=== PATIENT | female | born 1990 | race Caucasian/White ===

== ENCOUNTER 2016-08-01 15:07 | Emergency (ER) | payer MEDICAID ==
--- NOTE | 2016-08-01 15:23 | ER Document Report ---
ED Medical Screen (RME) - General Stated Complaint: KNEE PAIN Time seen by provider: 15:21 Mode of Arrival: Wheelchair Information source: Patient TRAVEL OUTSIDE OF THE [place] IN LAST 30 DAYS: No - HPI Patient complains to provider of: RIGHT KNEE PAIN Onset: Other - LAST NIGHT Onset/Duration: Sudden Context: PREVIOUS KNEE INJURY. ON KNEES LAST NIGHT SCRUBBING FLOOR NOW KNEE HAS PAIN AND SWELLING. HAS APPT TOMORROW WITH PCP FOR EVALUATION OF ONGOING KNE PAIN. STATES UNABLE TO BEAR WEIGHT. Quality of pain: Throbbing Severity: Severe Pain Level: 5 Associated Symptoms: None Exacerbated by: Movement Relieved by: Denies Similar symptoms previously: Yes Recently seen / treated by doctor: No - Related Data Smoking: Cigarettes Frequency of alcohol use: Occasional Drug Abuse: None Pertinent History: ANXIETY ADHD Allergies/Adverse Reactions: No Known Allergies Allergy (Verified 08/01/16 15:20) Past Medical History - Past Medical History Cardiac Medical History: Denies: Hx Coronary Artery Disease, Hx Heart Attack, Hx Hypertension Pulmonary Medical History: Denies: Hx Asthma, Hx Bronchitis, Hx COPD, Hx Pneumonia Neurological Medical History: Denies: Hx Cerebrovascular Accident, Hx Seizures Musculoskeltal Medical History: Denies Hx Arthritis Past Surgical History: Reports: Hx Tonsillectomy, Hx Tubal Ligation - Immunizations Hx Diphtheria, Pertussis, Tetanus Vaccination: Yes Physical Exam - Vital signs Vitals: Temp Pulse Resp BP Pulse Ox 98.0 F 95 16 113/68 98 08/01/16 15:11 08/01/16 15:11 08/01/16 15:11 08/01/16 15:11 08/01/16 15:11 Course - Vital Signs Vital signs: Temp Pulse Resp BP Pulse Ox 98.0 F 95 16 113/68 98 08/01/16 15:11 08/01/16 15:11 08/01/16 15:11 08/01/16 15:11 08/01/16 15:11
[2016-08-01] MEDS ORDERED: OXYCODONE-ACETAMINOPHEN 5-325 MG TABLET PO ONE (15:27)
[2016-08-01] MEDS ORDERED: ONDANSETRON 4 MG TAB.RAPDIS PO ONE (15:28)
--- NOTE | 2016-08-01 18:05 | ER Document Report ---
ED Extremity Problem, Lower - General Chief Complaint: Knee Pain Stated Complaint: KNEE PAIN Mode of Arrival: Ambulatory Information source: Patient Notes: This a 25-year-old female presented to the emergency room today because she stated she had fallen from had some pain in her right knee as a result of the fall. This occurred yesterday. She is been trying elevated and ice it with little improvement. TRAVEL OUTSIDE OF THE [place] IN LAST 30 DAYS: No - Related Data Allergies/Adverse Reactions: No Known Allergies Allergy (Verified 08/01/16 15:20) Past Medical History - General Information source: Patient - Social History Smoking Status: Current Every Day Smoker Chew tobacco use (# tins/day): Yes Frequency of alcohol use: Occasional Drug Abuse: None Family History: Reviewed & Not Pertinent, Other - [place]'s disease Patient has suicidal ideation: No Patient has homicidal ideation: No - Past Medical History Cardiac Medical History: Denies: Hx Coronary Artery Disease, Hx Heart Attack, Hx Hypertension Pulmonary Medical History: Denies: Hx Asthma, Hx Bronchitis, Hx COPD, Hx Pneumonia Neurological Medical History: Denies: Hx Cerebrovascular Accident, Hx Seizures Renal/ Medical History: Denies: Hx Peritoneal Dialysis Musculoskeltal Medical History: Denies Hx Arthritis Past Surgical History: Reports: Hx Tonsillectomy, Hx Tubal Ligation - Immunizations Hx Diphtheria, Pertussis, Tetanus Vaccination: Yes Review of Systems - Review of Systems Constitutional: No symptoms reported EENT: No symptoms reported Cardiovascular: No symptoms reported Respiratory: No symptoms reported Gastrointestinal: No symptoms reported Genitourinary: No symptoms reported Female Genitourinary: No symptoms reported Musculoskeletal: Other - Right knee tenderness Skin: No symptoms reported Hematologic/Lymphatic: No symptoms reported Neurological/Psychological: No symptoms reported Physical Exam - Vital signs Vitals: Temp Pulse Resp BP Pulse Ox 98.0 F 95 16 113/68 98 08/01/16 15:11 08/01/16 15:11 08/01/16 15:11 08/01/16 15:11 08/01/16 15:11 Interpretation: Normal - General General appearance: Appears well, Alert - HEENT Head: Normocephalic, Atraumatic Eyes: Normal Pupils: PERRL - Respiratory Respiratory status: No respiratory distress Chest status: Nontender Breath sounds: Normal Chest palpation: Normal - Cardiovascular Rhythm: Regular Heart sounds: Normal auscultation Murmur: No - Abdominal Inspection: Normal Distension: No distension Bowel sounds: Normal Tenderness: Nontender Organomegaly: No organomegaly - Back Back: Normal, Nontender - Extremities General upper extremity: Normal inspection, Nontender, Normal color, Normal ROM , Normal temperature General lower extremity: Normal inspection, Nontender, Normal color, Normal ROM , Normal temperature, Normal weight bearing. No: James's sign Knee: Other - Right knee tenderness good distal pulses x-ray negative. - Neurological Neuro grossly intact: Yes Cognition: Normal Orientation: AAOx4 Ezequiel Coma Scale Eye Opening: Spontaneous Ezequiel Coma Scale Verbal: Oriented Ezequiel Coma Scale Motor: Obeys Commands Ezequiel Coma Scale Total: 15 Speech: Normal Motor strength normal: LUE, RUE, LLE, RLE Sensory: Normal - Psychological Associated symptoms: Normal affect, Normal mood - Skin Skin Temperature: Warm Skin Moisture: Dry Skin Color: Normal Course - Vital Signs Vital signs: Temp Pulse Resp BP Pulse Ox 98.0 F 95 16 113/68 98 08/01/16 15:11 08/01/16 15:11 08/01/16 15:11 08/01/16 15:11 08/01/16 15:11 - Diagnostic Test Radiology reviewed: Reports reviewed Procedures - Immobilization Right Knee Immobilizer type: Knee immobilizer Performed by: RN Post-Proc Neuro Vasc Exam: Normal Alignment checked and good: Yes Discharge - Discharge Clinical Impression: Strain of right knee Qualifiers: Encounter type: initial encounter Qualified Code(s): S86.911A - Strain of unspecified muscle(s) and tendon(s) at lower leg level, right leg, initial encounter Disposition: HOME, SELF-CARE Instructions: Use of Crutches ([facility]), Ice & Elevation ([facility]), Suspected Internal Knee Injury ([facility]) Prescriptions: Tramadol HCl [Ultram 50 mg Tablet] 50 mg PO Q6HP PRN #40 tablet PRN Reason: Naproxen Sodium [Naproxen Sodium ER] 500 mg PO Q12 PRN #20 tablet.sa PRN Reason:
[2016-08-01 19:03] VITALS: BP 122/75
== END 2016-08-01 18:44 | disposition home or self-care (01) ==
LOC: ER 15:07
DX: S86.911A Strain of unspecified muscle(s) and tendon(s) at lower leg level, right leg, initial encounter (principal); W19.XXXA Unspecified fall, initial encounter; M25.561 Pain in right knee; F17.200 Nicotine dependence, unspecified, uncomplicated
CPT/HCPCS: 99283; 73564; L1830; S0119

== ENCOUNTER 2016-08-04 13:23 | Emergency (ER) | payer MEDICAID ==
--- NOTE | 2016-08-04 13:54 | ER Document Report ---
ED Medical Screen (RME) - General Stated Complaint: KNEE PAIN Notes: patient is a 25 year old female who likely has an internal knee injury. she saw ortho today who states she needs to do PT and wear a brace for 6 weeks and if still having pain then she can get an MRI she states her pain is significant and was given tramadol and is still in pain and wont walk on it I have greeted and performed a rapid initial assessment of this patient. A comprehensive ED assessment and evaluation of the patient, analysis of test results and completion of the medical decision making process will be conducted by additional ED providers. TRAVEL OUTSIDE OF THE [place] IN LAST 30 DAYS: No - Related Data Allergies/Adverse Reactions: No Known Allergies Allergy (Verified 08/04/16 13:54) Past Medical History - Past Medical History Cardiac Medical History: Denies: Hx Coronary Artery Disease, Hx Heart Attack, Hx Hypertension Pulmonary Medical History: Denies: Hx Asthma, Hx Bronchitis, Hx COPD, Hx Pneumonia Neurological Medical History: Denies: Hx Cerebrovascular Accident, Hx Seizures Renal/ Medical History: Denies: Hx Peritoneal Dialysis Musculoskeltal Medical History: Denies Hx Arthritis Past Surgical History: Reports: Hx Tonsillectomy, Hx Tubal Ligation - Immunizations Hx Diphtheria, Pertussis, Tetanus Vaccination: Yes
[2016-08-04 13:57] VITALS: BP 125/79
[2016-08-04] MEDS ORDERED: ONDANSETRON 4 MG TAB.RAPDIS PO ONE (15:57)
[2016-08-04] MEDS ORDERED: IBUPROFEN 800 MG TABLET PO ONE (15:58)
[2016-08-04] MEDS ORDERED: TRAMADOL HCL 50 MG TABLET PO ONE (15:58)
[2016-08-04] MEDS ORDERED: HYDROCODONE/ACETAMINOPHEN 5-325 MG 6 TAB/DSPK PO PRN (18:50)
--- NOTE | 2016-08-04 18:56 | ER Document Report ---
ED Extremity Problem, Lower - General Chief Complaint: Knee Injury Stated Complaint: KNEE PAIN Time seen by provider: 18:51 Mode of Arrival: Wheelchair Information source: Patient, Relative - TRAVEL OUTSIDE OF THE [place] IN LAST 30 DAYS: No - HPI Patient complains to provider of: Pain Location: Knee Occurred: Other Onset/Duration: Gradual Quality of pain: Achy, Fullness, Pressure Severity: Moderate Pain Level: 4 Recent injury: Possibly Associated symptoms: Painful ambulation Exacerbated by: Movement Relieved by: Nothing Notes: Patient is a 25-year-old female presenting to the emergency room complaining of right knee pain, she states she had an injury approximately a half ago, which seemed to get better, and about for 5 days ago she was kneeling down cleaning her kitchen floor, when she woke up the next morning she had excruciating pain in the right knee, there was no new fall or injury, she was seen in this emergency room had an x-ray performed which showed no acute findings and was recommended to follow-up with orthopedics, patient saw orthopedic surgeon, Dr. Hawley earlier today, who recommended she do home exercises for 6 weeks, continue with RICE, and follow up in 6 weeks, if she continues to have pain then he will order an MRI at that point in time, this is according to patient and at bedside, she was also given a prescription for tramadol which she states causes her GI issues and does not help with her pain - Related Data Allergies/Adverse Reactions: No Known Allergies Allergy (Verified 08/04/16 13:54) Past Medical History - General Information source: Patient - Social History Smoking Status: Current Every Day Smoker Chew tobacco use (# tins/day): No Frequency of alcohol use: None Drug Abuse: None Family History: Reviewed & Not Pertinent, Other - [place]'s disease Patient has suicidal ideation: No Patient has homicidal ideation: No - Past Medical History Cardiac Medical History: Denies: Hx Coronary Artery Disease, Hx Heart Attack, Hx Hypertension Pulmonary Medical History: Denies: Hx Asthma, Hx Bronchitis, Hx COPD, Hx Pneumonia Neurological Medical History: Denies: Hx Cerebrovascular Accident, Hx Seizures Renal/ Medical History: Denies: Hx Peritoneal Dialysis Musculoskeltal Medical History: Denies Hx Arthritis Past Surgical History: Reports: Hx Tonsillectomy, Hx Tubal Ligation - Immunizations Hx Diphtheria, Pertussis, Tetanus Vaccination: Yes Review of Systems - Review of Systems Constitutional: No symptoms reported EENT: No symptoms reported Cardiovascular: No symptoms reported Respiratory: No symptoms reported Gastrointestinal: No symptoms reported Genitourinary: No symptoms reported Female Genitourinary: No symptoms reported Musculoskeletal: See HPI Skin: No symptoms reported Hematologic/Lymphatic: No symptoms reported Neurological/Psychological: No symptoms reported -: Yes All other systems reviewed and negative Physical Exam - Vital signs Vitals: Temp Pulse Resp BP Pulse Ox 98 F 106 H 16 125/79 100 08/04/16 13:54 08/04/16 13:54 08/04/16 13:54 08/04/16 13:54 08/04/16 13:54 Interpretation: Normal - Notes Notes: - General General appearance: Appears well, Alert In distress: None - HEENT Head: Normocephalic, Atraumatic Eyes: Normal Conjunctiva: Normal Extraocular movements intact: Yes Eyelashes: Normal Pupils: PERRL - Respiratory Respiratory status: No respiratory distress - Cardiovascular Rhythm: Regular - Abdominal Inspection: Normal - Back Back: Normal - Extremities General upper extremity: Normal inspection General lower extremity: Patient reports tenderness to palpate almost anywhere I touch on her right leg, she reports pain with range of motion testing as well , there is no erythema, no change in temperature, no evidence of swelling, distal sensation and motor is intact, there are 2+ DP pulses - Neurological Neuro grossly intact: Yes Orientation: AAOx4 [place] Coma Scale Eye Opening: Spontaneous [place] Coma Scale Verbal: Oriented Ezequiel Coma Scale Motor: Obeys Commands [place] Coma Scale Total: 15 - Psychological Associated symptoms: Normal affect, Normal mood - Skin Skin Temperature: Warm Skin Moisture: Dry Skin Color: Normal Course - Re-evaluation Re-evalutation: 08/04/16 18:53 Patient with right knee pain, has been seen in this emergency room and by orthopedics recently for pain, reports her pain continues, patient has a knee brace on that was provided by orthopedics earlier today, however she has no crutches with her, when I inquired about crutches she said she left them at home and does not use them, I explained to her that that was part of her treatment was to stay off the knee and remain nonweightbearing, ice and elevate the extremity, follow back up with orthopedics as needed, patient and inquired as to whether they could obtain a CT scan of the knee today, I explained to them that a CT scan would not be the best test for her right now and then an MRI would have to be ordered as an outpatient in the future as this is an emergency room test, I advised her to continue using the knee brace, remain nonweightbearing as much as possible, use her crutches, she will be provided with a prescription for a small amount of pain medication at this point in time, and advised to return if symptoms worsen, patient and acknowledge understanding and agreement with this plan - Vital Signs Vital signs: Temp Pulse Resp BP Pulse Ox 98 F 106 H 16 125/79 100 08/04/16 13:54 08/04/16 13:54 08/04/16 13:54 08/04/16 13:54 08/04/16 13:54 Discharge - Discharge Clinical Impression: Right knee pain Qualifiers: Chronicity: acute Qualified Code(s): M25.561 - Pain in right knee Condition: Stable Disposition: HOME, SELF-CARE Instructions: Use of Crutches ([facility]), Ice & Elevation ([facility]), Suspected Internal Knee Injury ([facility]), Oral Narcotic Medication ([facility]), Sprained Knee ([facility]) Additional Instructions: Follow up with your primary care provider and an orthopedic surgeon in one to 2 days. Return to the emergency room immediately if symptoms worsen or any additional concerns. Ice and elevate the affected extremity. Limit weightbearing. Prescriptions: Hydrocodone/Acetaminophen [Hydrocodon-Acetaminophen 5-325] 1 each PO Q6 #20 tablet
== END 2016-08-04 19:05 | disposition home or self-care (01) ==
LOC: ER 13:23
DX: M25.561 Pain in right knee (principal); F17.200 Nicotine dependence, unspecified, uncomplicated; Z98.51 Tubal ligation status
CPT/HCPCS: 99283; J3490; S0119

== ENCOUNTER → 2016-09-28 | Outpatient (CLI) | payer MEDICAID | LOC: OD 11:08 | PROVIDERS: ATTEND Physician Assistant | DX: M54.5 Low back pain (principal); M48.07 Spinal stenosis, lumbosacral region | CPT/HCPCS: 72110 ==

== ENCOUNTER → 2016-10-16 | Outpatient (CLI) | payer MEDICAID | LOC: MERGE 10-05 11:30 → RAD 10:45 | PROVIDERS: ATTEND Physician Assistant | DX: M25.561 Pain in right knee (principal) ==

== ENCOUNTER → 2016-10-24 | Outpatient (CLI) | payer MEDICAID ==
[~2016-10-24] MED LIST: AMINOPHYLLINE INJ/PF 250 MG/10 ML SDV IV ONE; REGADENOSON INJ 0.4 MG/5 ML DISP.SYRIN IV ONE
--- NOTE | 2016-10-26 16:33 | RADIOLOGY REPORT ---
STRESS TEST REPORT PATIENT NAME: DIOGENES NAVARRETE ROOM#: DATE OF SERVICE: 10/24/2016 AGE: 26Y ORDER#: [id number] REFERRING MD: NEPTALI WELLER M.D. INDICATION For assessment of chest pains. PROCEDURE PERFORMED REST/STRESS SINGLE ISOTOPE CARDIOLITE SPECT IMAGING WITH IV LEXISCAN STRESS AND GATED SPECT IMAGING CLINICAL HISTORY This is a 26-year-old female with no known coronary artery disease has cardiac risk factors of smoking. Current symptomatology includes chest pain and chest tightness. PROCEDURE The patient was given IV Lexiscan 0.4 mg injected over 10 seconds and flushed. The resting heart rate was 99 bpm and increased to 121 bpm at end infusion. The resting BP was 109/72 and decreased to 85/49 at end infusion. The patient had symptoms of increased chest tightness, going from baseline of 2/5 to 3/5, in addition to shortness of breath, lightheadedness and some nausea. The resting 12 lead EKG showed sinus rhythm of 99 bpm with mild nonspecific STT changes in the inferolateral leads. At end infusion, no additional ST changes were seen. Myocardial perfusion imaging was performed at rest 60 minutes following injection of 11.34 mCi Cardiolite. Ten seconds after the IV Lexiscan injection, the patient was injected with 33.6 mCi Cardiolite and flushed. Gated post stress tomographic imaging was performed 60 minutes after stress. FINDINGS The overall quality of the study is very poor. This is due to severe breast attenuation on both the rest and stress studies. In addition, bowel uptake was seen superimposed on the mid-inferior wall of the heart on both the rest and stress studies. SPECT images showed a small, mild, reversible ischemic defect in the basal anterior wall, with no fixed perfusion defects. The gated SPECT imaging also showed reduced motion contraction in the anterior wall. The left ventricular ejection fraction was 54%. There was no transient ischemic dilatation of the left ventricle. IMPRESSION: MYOCARDIAL PERFUSION IMAGING IS NONDIAGNOSTIC. THIS IS DUE TO BASAL AND MID-INFERIOR WALL PERFUSION INFORMATION UNRELIABLE DUE TO EXTRACARDIAC BOWEL UPTAKE SUPERIMPOSED ON THE INFERIOR WALL. THERE APPEARS TO BE A SMALL, MILD PERFUSION DEFECT IN THE BASAL ANTERIOR WALL WITH NO FIXED PERFUSION DEFECT. OVERALL LEFT VENTRICULAR SYSTOLIC FUNCTION WAS NORMAL AT 54% WITH REGIONAL WALL MOTION ABNORMALITY IN THE BASAL INFERIOR WALL. NO PRIOR STUDIES FOR COMPARISON. RECOMMENDATION: MEDICAL THERAPY, CARDIAC CATHERIZATION IF NEEDED FOR UNCONTROLLABLE CHEST PAINS. INTERPRETING PHYSICIAN: NEPTALI WELLER M.D. /: [place] TT: [id number] ID: [id number] /: [id number] TD: [id number] JOB: [id number] cc:NEPTALI WELLER M.D. > MTDD
== END ==
LOC: RAD 06:24
PROVIDERS: ATTEND Internal Medicine Cardiovascular Disease
DX: R07.9 Chest pain, unspecified (principal)
CPT/HCPCS: 93017; 78452; A9500; J2785; J0280; Q9969

== ENCOUNTER → 2016-11-13 | Outpatient (CLI) | payer MEDICAID | LOC: OD 13:59 | PROVIDERS: ATTEND Specialist | DX: G25.81 Restless legs syndrome (principal) | CPT/HCPCS: 36415; 82728 ==